=== PATIENT | male | born 1970 | race Caucasian/White ===

== ENCOUNTER 2023-06-06 11:19 | Inpatient (IN) | payer OTHER ==
[2023-06-06 11:42] VITALS: BMI 20.5
[2023-06-06] MEDS ORDERED: MAGNESIUM HYDROX 2400MG/30ML ORAL SUSPENSION 30 ML CUP PO PRN (12:33)
[2023-06-06] MEDS ORDERED: BISMUTH SUBSALICYLATE 524 MG/30 ML PO PRN (12:33)
[2023-06-06] MEDS ORDERED: BENZOCAINE/MENTHOL (CHLORASEPTIC ) LOZENGE MM PRN (12:33)
[2023-06-06] MEDS ORDERED: BENZONATATE 200 MG CAPSULE PO PRN (12:33)
[2023-06-06] MEDS ORDERED: NICOTINE 21 MG/24 HOURS TOPICAL PATCH TD PRN (12:33)
[2023-06-06] MEDS ORDERED: IBUPROFEN 600 MG TABLET (FP) PO PRN (12:33)
[2023-06-06] MEDS ORDERED: NALOXONE HCL (KLOXXADO) 8 MG SPRAY NS PRN (12:33)
[2023-06-06] MEDS ORDERED: IBUPROFEN 400 MG TABLET (FP) PO PRN (12:33)
[2023-06-06] MEDS ORDERED: POLYETHYLENE GLYCOL (HEALTHYLAX) 3350 17 GM PACKET PO PRN (12:33)
[2023-06-06] MEDS ORDERED: DICYCLOMINE HCL 10 MG CAPSULE PO PRN (12:33)
[2023-06-06] MEDS ORDERED: LOPERAMIDE HCL 2 MG CAPSULE PO PRN (12:33)
[2023-06-06] MEDS ORDERED: guaiFENesin 600 MG TABLET.ER (FP) PO PRN (12:33)
[2023-06-06] MEDS ORDERED: chlordiazePOXIDE HCL 25 MG CAPSULE PO ONE (12:33)
[2023-06-06] MEDS ORDERED: NALOXONE HCL 0.4 MG/ML VIAL IM PRN (12:33)
[2023-06-06] MEDS ORDERED: MAG HYDROX/AL HYDROX/SIMETH 30 ML UNIT-DOSE CUP PO PRN (12:33)
[2023-06-06] MEDS ORDERED: BUPRENORPHINE/NALOXONE 4 MG/1 MG FILM PACKET ONE (13:06)
[2023-06-06] MEDS ORDERED: chlordiazePOXIDE HCL 25 MG CAPSULE ONE (13:06)
[2023-06-06] MEDS: BUPRENORPHINE/NALOXONE 4 MG/1 MG FILM PACKET SL SCH ×2 (13:07→18:17)
[2023-06-06] MEDS: CEPHALEXIN MONOHYDRATE 500 MG CAPSULE (UD) PO SCH ×2 (13:47→22:17)
[2023-06-06] MEDS ORDERED: cloNIDine HCL 0.1 MG TABLET PO PRN (15:06)
[2023-06-06] MEDS: ASPIRIN COATED 81 MG TABLET.EC PO SCH (15:59)
[2023-06-06] MEDS: chlordiazePOXIDE HCL 25 MG CAPSULE PO SCH ×2 (17:20→22:17)
[2023-06-06] MEDS: NICOTINE POLACRILEX 4 MG LOZENGE BC PRN ×2 (19:02→23:31)
[2023-06-06] MEDS: chlordiazePOXIDE HCL 25 MG CAPSULE PO PRN (19:50)
[2023-06-06] MEDS: hydrOXYzine PAMOATE 25 MG CAPSULE (FP) PO PRN (19:50)
[2023-06-06] MEDS: MELATONIN 5 MG TABLETS PO SCH (22:17)
[2023-06-06] MEDS: THIAMINE HCL 100 MG TABLET (FP) PO SCH (22:17)
[2023-06-06] MEDS: cloNIDine HCL 0.1 MG TABLET PO SCH (22:17)
[2023-06-07] MEDS: METHOCARBAMOL 500 MG TABLET PO PRN ×3 (00:48→18:16)
[2023-06-07] MEDS: chlordiazePOXIDE HCL 25 MG CAPSULE PO SCH ×4 (05:29→23:46)
[2023-06-07] MEDS: PRENATAL VITAMINS W/ FOLIC ACID TABLET (FP) PO SCH (10:10)
[2023-06-07] MEDS: ASPIRIN COATED 81 MG TABLET.EC PO SCH (10:10)
[2023-06-07] MEDS: cloNIDine HCL 0.1 MG TABLET PO SCH ×2 (10:10→22:31)
[2023-06-07] MEDS: CEPHALEXIN MONOHYDRATE 500 MG CAPSULE (UD) PO SCH ×2 (10:10→22:31)
[2023-06-07] MEDS: BUPRENORPHINE/NALOXONE 8 MG/2 MG FILM PACKET SL SCH ×2 (10:12→21:25)
[2023-06-07] MEDS: ACETAMINOPHEN 325 MG TABLET (FP) PO PRN (13:10)
[2023-06-07] MEDS: hydrOXYzine PAMOATE 25 MG CAPSULE (FP) PO PRN (13:10)
[2023-06-07] MEDS: chlordiazePOXIDE HCL 25 MG CAPSULE PO PRN (14:10)
[2023-06-07] MEDS: ONDANSETRON *ODT* 4 MG TABLET SL PRN (14:11)
[2023-06-07 15:17] LABS: HEMATOCRIT 40.1 % (35.4-49); MCH 26.6 pg (25.7-33.7); MCHC 32.4 g/dl (32.0-35.9); MEAN PLT VOLUME 7.7 fl (7.5-11.1); PLATELET COUNT 263 10^3/uL (134-434); RBC 4.89 M/mm3 (4.00-5.60); RDW 16.1 % (11.9-15.9); WHITE BLOOD COUNT 6.3 K/mm3 (4.0-10.0)
[2023-06-07 16:04] LABS: CHLORIDE 104 mmol/L (98-107); POTASSIUM 3.9 mmol/L (3.5-5.1); SODIUM 134 mmol/L (136-145)
[2023-06-07 16:05] LABS: ANION GAP 4 mmol/L (4-13); BLOOD UREA NITROGEN 7.8 mg/dL (7-18); CALCIUM 7.7 mg/dL (8.5-10.1); CO2 26 mmol/L (21-32)
[2023-06-07 16:07] LABS: ALBUMIN 2.7 g/dl (3.4-5.0); GLUCOSE,RANDOM 116 mg/dL (74-106)
[2023-06-07 16:09] LABS: SGPT/ALT 28 U/L (13-61)
[2023-06-07 16:10] LABS: BILIRUBIN,TOTAL 0.2 mg/dL (0.2-1); CREATININE 0.7 mg/dL (0.55-1.3); SGOT/AST 24 U/L (15-37); TOT PROT 6.8 g/dl (6.4-8.2)
[2023-06-07 16:12] LABS: ALK PHOS 96 U/L (45-117)
[2023-06-07] MEDS: TRIMETHOBENZAMIDE HCL 200MG/2ML INJ IM PRN (19:31)
[2023-06-07] MEDS: QUEtiapine FUMARATE 100 MG TABLET (FP) PO SCH (22:31)
[2023-06-07] MEDS: MELATONIN 5 MG TABLETS PO SCH (22:51)
[2023-06-07] MEDS: THIAMINE HCL 100 MG TABLET (FP) PO SCH (22:51)
[2023-06-08] MEDS: METHOCARBAMOL 500 MG TABLET PO PRN ×3 (01:07→22:09)
[2023-06-08] MEDS: ACETAMINOPHEN 325 MG TABLET (FP) PO PRN (01:07)
[2023-06-08] MEDS: chlordiazePOXIDE HCL 25 MG CAPSULE PO SCH ×4 (05:31→22:08)
[2023-06-08] MEDS: ONDANSETRON *ODT* 4 MG TABLET SL PRN (07:21)
[2023-06-08 10:00] LABS: URINE APPEARANCE CLEAR; URINE BILIRUBIN NEGATIVE (NEGATIVE); URINE COLOR YELLOW; URINE GLUCOSE (UA) NEGATIVE (NEGATIVE); URINE KETONE NEGATIVE (NEGATIVE); URINE LEUK ESTERASE NEGATIVE (NEGATIVE); URINE NITRITE NEGATIVE (NEGATIVE); URINE PROTEIN NEGATIVE (NEGATIVE); URINE UROBILINOGEN 0.2 mg/dL (0.2-1.0)
[2023-06-08] MEDS: BUPRENORPHINE/NALOXONE 8 MG/2 MG FILM PACKET SL SCH ×2 (10:10→22:07)
[2023-06-08] MEDS: ASPIRIN COATED 81 MG TABLET.EC PO SCH (10:10)
[2023-06-08] MEDS: PRENATAL VITAMINS W/ FOLIC ACID TABLET (FP) PO SCH (10:11)
[2023-06-08] MEDS: CEPHALEXIN MONOHYDRATE 500 MG CAPSULE (UD) PO SCH ×2 (10:11→22:07)
[2023-06-08] MEDS: cloNIDine HCL 0.1 MG TABLET PO SCH ×2 (10:11→22:07)
[2023-06-08] MEDS: hydrOXYzine PAMOATE 25 MG CAPSULE (FP) PO PRN (13:14)
[2023-06-08] MEDS: LACTULOSE 20 GM/30 ML UDC (FOR ORAL USE ONLY) PO SCH ×2 (13:35→22:08)
[2023-06-08] MEDS: QUEtiapine FUMARATE 100 MG TABLET (FP) PO SCH (22:07)
[2023-06-08] MEDS: THIAMINE HCL 100 MG TABLET (FP) PO SCH (22:07)
[2023-06-08] MEDS: MELATONIN 5 MG TABLETS PO SCH (22:08)
[2023-06-09] MEDS: hydrOXYzine PAMOATE 25 MG CAPSULE (FP) PO PRN (00:52)
[2023-06-09] MEDS: chlordiazePOXIDE HCL 10 MG CAPSULE PO PRN ×2 (00:53→10:14)
[2023-06-09] MEDS: chlordiazePOXIDE HCL 10 MG CAPSULE PO SCH ×4 (05:43→21:59)
[2023-06-09] MEDS: LACTULOSE 20 GM/30 ML UDC (FOR ORAL USE ONLY) PO SCH ×3 (05:45→21:59)
[2023-06-09] MEDS: BUPRENORPHINE/NALOXONE 8 MG/2 MG FILM PACKET SL SCH ×2 (10:13→21:58)
[2023-06-09] MEDS: cloNIDine HCL 0.1 MG TABLET PO SCH ×2 (10:14→21:59)
[2023-06-09] MEDS: PRENATAL VITAMINS W/ FOLIC ACID TABLET (FP) PO SCH (10:14)
[2023-06-09] MEDS: CEPHALEXIN MONOHYDRATE 500 MG CAPSULE (UD) PO SCH ×2 (10:14→21:59)
[2023-06-09] MEDS: ASPIRIN COATED 81 MG TABLET.EC PO SCH (10:14)
[2023-06-09] MEDS: METHOCARBAMOL 500 MG TABLET PO PRN ×2 (15:23→21:59)
[2023-06-09] MEDS: TRIMETHOBENZAMIDE HCL 200MG/2ML INJ IM PRN (17:37)
[2023-06-09] MEDS: THIAMINE HCL 100 MG TABLET (FP) PO SCH (21:59)
[2023-06-09] MEDS: MELATONIN 5 MG TABLETS PO SCH (21:59)
[2023-06-09] MEDS: QUEtiapine FUMARATE 100 MG TABLET (FP) PO SCH (21:59)
[2023-06-10] MEDS: chlordiazePOXIDE HCL 10 MG CAPSULE PO SCH ×2 (05:10→16:39)
[2023-06-10] MEDS: LACTULOSE 20 GM/30 ML UDC (FOR ORAL USE ONLY) PO SCH ×3 (05:11→22:27)
[2023-06-10] MEDS: PRENATAL VITAMINS W/ FOLIC ACID TABLET (FP) PO SCH (10:09)
[2023-06-10] MEDS: hydrOXYzine PAMOATE 25 MG CAPSULE (FP) PO PRN (10:09)
[2023-06-10] MEDS: METHOCARBAMOL 500 MG TABLET PO PRN ×2 (10:10→16:38)
[2023-06-10] MEDS: CEPHALEXIN MONOHYDRATE 500 MG CAPSULE (UD) PO SCH ×2 (10:10→22:25)
[2023-06-10] MEDS: ASPIRIN COATED 81 MG TABLET.EC PO SCH (10:10)
[2023-06-10] MEDS: cloNIDine HCL 0.1 MG TABLET PO SCH ×2 (10:11→22:25)
[2023-06-10] MEDS: BUPRENORPHINE/NALOXONE 8 MG/2 MG FILM PACKET SL SCH ×2 (10:11→22:25)
[2023-06-10 11:38] LABS: POTASSIUM 4.5 mmol/L (3.5-5.1)
[2023-06-10 11:39] LABS: BLOOD UREA NITROGEN 12.4 mg/dL (7-18)
[2023-06-10 11:42] LABS: CREATININE 0.6 mg/dL (0.55-1.3)
[2023-06-10 11:45] LABS: CALCIUM 8.9 mg/dL (8.5-10.1)
[2023-06-10 12:41] LABS: BASO % 0.2 % (0-2.0); EOS % 0.3 % (0-4.5); HEMATOCRIT 41.2 % (35.4-49); HEMOGLOBIN 13.4 GM/dL (11.7-16.9); LYMPH % 14.9 % (8-40); MCH 26.5 pg (25.7-33.7); MCHC 32.4 g/dl (32.0-35.9); MEAN CELL VOLUME 81.7 fl (80-96); MEAN PLT VOLUME 7.7 fl (7.5-11.1); MONO % 10.4 % (3.8-10.2); NEUT % 74.2 % (42.8-82.8); PLATELET COUNT 245 10^3/uL (134-434); RBC 5.05 M/mm3 (4.00-5.60); RDW 16.3 % (11.9-15.9); WHITE BLOOD COUNT 11.3 K/mm3 (4.0-10.0)
[2023-06-10] MEDS: QUEtiapine FUMARATE 100 MG TABLET (FP) PO SCH (22:25)
[2023-06-10] MEDS: THIAMINE HCL 100 MG TABLET (FP) PO SCH (22:25)
[2023-06-10] MEDS: MELATONIN 5 MG TABLETS PO SCH (22:26)
[2023-06-11] MEDS ORDERED: chlordiazePOXIDE HCL 10 MG CAPSULE PO ONE (05:00)
[2023-06-11] MEDS: LACTULOSE 20 GM/30 ML UDC (FOR ORAL USE ONLY) PO SCH (05:38)
[2023-06-11] MEDS: BUPRENORPHINE/NALOXONE 8 MG/2 MG FILM PACKET SL SCH (09:53)
[2023-06-11] MEDS: ASPIRIN COATED 81 MG TABLET.EC PO SCH (09:54)
[2023-06-11] MEDS: METHOCARBAMOL 500 MG TABLET PO PRN (09:54)
[2023-06-11] MEDS: CEPHALEXIN MONOHYDRATE 500 MG CAPSULE (UD) PO SCH (09:54)
[2023-06-11] MEDS: PRENATAL VITAMINS W/ FOLIC ACID TABLET (FP) PO SCH (09:54)
[2023-06-11] MEDS: cloNIDine HCL 0.1 MG TABLET PO SCH (09:54)
[2023-06-11] MEDS ORDERED: LIDOCAINE 4% PATCH TP SCH (12:30)
[2023-06-11 12:45] VITALS: BP 136/93; PULSE 106; RESP 18; TEMP 98.4
[2023-06-11] MEDS ORDERED: LIDOCAINE PATCH REMOVAL MC SCH (22:00)
== END 2023-06-11 16:20 | disposition home or self-care (01) | DRG 773 ==
LOC: YASAS 11:19 → Y6N 13:13
PROVIDERS: ADMIT Allergy & Immunology; ATTEND Allergy & Immunology
PROC: HZ2ZZZZ Detoxification Services for Substance Abuse Treatment (ICD-10-PCS; principal; 2023-06-06)
DX: F11.23 Opioid dependence with withdrawal (principal); F10.230 Alcohol dependence with withdrawal, uncomplicated; F14.20 Cocaine dependence, uncomplicated; F17.210 Nicotine dependence, cigarettes, uncomplicated; F19.282 Other psychoactive substance dependence with psychoactive substance-induced sleep disorder; F19.24 Other psychoactive substance dependence with psychoactive substance-induced mood disorder; U07.1 COVID-19; G62.9 Polyneuropathy, unspecified; G40.909 Epilepsy, unspecified, not intractable, without status epilepticus; I10 Essential (primary) hypertension; J45.909 Unspecified asthma, uncomplicated; L03.113 Cellulitis of right upper limb; R79.89 Other specified abnormal findings of blood chemistry; Z62.810 Personal history of physical and sexual abuse in childhood; Z86.19 Personal history of other infectious and parasitic diseases; Z86.73 Personal history of transient ischemic attack (TIA), and cerebral infarction without residual deficits; Z56.0 Unemployment, unspecified; Z59.00 Homelessness unspecified
CPT/HCPCS: 36415; 80048; 80053; 80307; 81003; 82140; 84443; 85025; 85027; 86780; 87635; 87811; 93005; 93010; Q0162